=== PATIENT | male | born 1950 | race Caucasian/White ===

== ENCOUNTER 2022-12-04 18:04 | Emergency (ER) | payer OTHER, SELFPAY ==
[2022-12-04 18:08] VITALS: BP 151/95; PULSE 77; RESP 17; TEMP 36.5; O2SAT 96; BMI 27.3
--- NOTE | 2022-12-04 18:09 | ED.EXTPRO1 ---
HPI - Extremity Problem General Chief complaint: Extremity Problem, Nontraumatic Stated complaint: EXTREMITY PAIN, LOWER, BILATERAL Time Seen by Provider: 12/04/22 18:09 History of Present Illness HPI Narrative: Patient presents to emergency department complaining of bilateral lower extremity pain. Patient states pain has been ongoing For 3 weeks. Patient denies any injury. The pain is sharp and it is from the Tibia tuberosity distally bilaterally. The patient has varicosities. He denies any lower extremity edema. He denies any nausea, vomiting, diarrhea, constipation, or abdominal pain. He denies any paresthesias, or weakness. Times he feels like cramping. Patient went to see his primary care doctor and he was prescribed Percocet. He states the kind of took the edge of it but it did not help to relieve the pain completely. And he is out of it. hr ed then prescribed meloxicam which has now to helped at all. Pain is worse with walking.He denies any chest pain, shortness of breath. Related Data Previous Rx's Medication Instructions Recorded oxycodone-acetaminophen 5 mg-325 1 tab PO DAILY PRN pain 5 days #14 12/04/22 mg tablet (Percocet) tabs Allergies Allergy/AdvReac Type Severity Reaction Status Date / Time No Known Drug Allergies Allergy Verified 12/04/22 18:08 Review of Systems ROS Status of ROS 10 or more systems reviewed and unremarkable except as noted in history and below Exam Narrative Exam Narrative: Nurses notes and vital signs reviewed and patient is not hypoxic. General: Nontoxic, Well-appearing and in no apparent distress. Skin: Warm, dry, no pallor noted. No Rash Head: Normocephalic, atraumatic. Neck: Supple, non-tender. Eye: Pupils are equal, round and EOMI. No scleral icterus. Ears, Nose, Mouth, and Throat: TM clear, no posterior oropharynx erythema or nasal mucosal hypertrophy, uvula is mid-line Oral mucosa is moist Cardiovascular: Regular Rate and Rhythm without murmur, gallop or rub. Respiratory: No accessory muscle use or respiratory distress. Lungs are clear to auscultation, no wheezing, rales or rhonchi Chest Wall: no tenderness Back: No midline thoracic or lumbar vertebral tenderness. No CVA tenderness Musculoskeletal: Bilateral lower extremity varicosities noted. There is no erythema, no palpable cords or proximal streaking noted. DP +2 bilaterally. TP +2 bilaterally. Capillary refill is brisk. normal ROM, no calf or popliteal tenderness, no lower extremity edema/swelling, no calf asymmetry GI: Abdomen is soft, non-distended. Normal bowel sounds. No masses appreciated. No tenderness to palpation. No rebound, guarding, or rigidity noted. Neurological: A&O x4. No cranial nerve dysfunction observed. No truncal ataxia. Moves all extremities. Sensation intact. Psychiatric: Cooperative and interactive. Normal mood and affect. Constitutional Vital Signs, click to edit/add: Last Vital Signs Temp 97.7 F 12/04/22 18:08 Pulse 77 12/04/22 18:08 Resp 17 12/04/22 18:08 BP 151/95 H 12/04/22 18:08 Pulse Ox 96 12/04/22 18:08 O2 Del Method Room Air 12/04/22 18:45 Course Vital Signs Vital signs: Vital Signs Temperature 97.7 F 12/04/22 18:08 Pulse Rate 77 12/04/22 18:08 Respiratory Rate 17 12/04/22 18:08 Blood Pressure 151/95 H 12/04/22 18:08 Pulse Oximetry 96 12/04/22 18:08 Oxygen Delivery Method Room Air 12/04/22 18:08 Temperature 97.7 F 12/04/22 18:08 Pulse Rate 77 12/04/22 18:08 Respiratory Rate 17 12/04/22 18:08 Blood Pressure 151/95 H 12/04/22 18:08 Pulse Oximetry 96 12/04/22 18:08 Oxygen Delivery Method Room Air 12/04/22 18:45 MDM - Extremity (Nontraumatic) MDM Narrative Medical decision making narrative: Ultrasound of bilateral lower extremities was done and no deep vein thrombosis or superficial thrombosis was noted.Lab studies showed dehydration , and Hypocalcemia. Patient was advised to take calcium and increase fluid intake. Patient is advised to continue to take Percocet given a prescription. Worse was checked. He will follow up with primary care doctor. At this time the patient is without objective evidence of an acute process requiring hospitalization or inpatient management. The patient has remained hemodynamically stable. No additional indication for emergent studies at this time. I answered all questions. Discussed discharge instructions including standard anticipatory guidance and what should prompt a return to the emergency department, including if they get worse are not getting better or develops any new or concerning symptoms. I've given them specific time frame in which to follow-up, and who to follow-up with. The patient demonstrates understanding. Patient is nontoxic and stable for discharge with outpatient follow-up. This note was created with the assistance of a speech recognition program. Although the intention is to generate documents that actually reflects the content of the visit, no guarantees can be provided that every mistake has been identified and corrected by editing. Lab Data Attestation: I reviewed the patient's lab results. Labs: Lab Results 12/04/22 Range/Units 18:39 WBC 6.2 (4.0-11.0) 10^3/uL RBC 4.00 L (4.70-6.10) 10^6/uL Hgb 13.1 L (14.0-18.0) g/dL Hct 40.0 L (42.0-54.0) % MCV 100.0 H (80.0-94.0) fL MCH 32.8 (25.9-34.0) pg MCHC 32.8 (29.9-35.2) g/dL RDW 14.6 (11.0-15.0) % Plt Count 190 (150-450) 10^3/uL MPV 9.5 (9.5-13.5) fL Neut % (Auto) 56.3 (43.0-75.0) % Lymph % (Auto) 27.8 (20.5-60.0) % [place] % (Auto) 12.5 H (1.7-12.0) % Eos % (Auto) 2.9 (0.9-7.0) % Baso % (Auto) 0.2 (0.2-2.0) % Neut # (Auto) 3.5 (1.4-6.5) 10^3/uL Lymph # (Auto) 1.7 (1.2-3.8) 10^3/uL [place] # (Auto) 0.8 (0.3-0.8) 10^3/uL Eos # (Auto) 0.2 (0.0-0.7) 10^3/uL Baso # (Auto) 0.0 (0.0-0.1) 10^3/uL Abs Immat Gran (auto) 0.02 (0.00-0.03) 10^3/uL Imm/Tot Granulo (auto) 0.3 (0.0-0.5) % Sodium 138 (136-145) mmol/L Potassium 4.6 (3.5-5.1) mmol/L Chloride 105 (98-107) mmol/L Carbon Dioxide 30.7 (21.0-32.0) mmol/L Anion Gap 6.9 BUN 26.0 H (7.0-18.0) mg/dL Creatinine 1.04 (0.70-1.30) mg/dL Est GFR ( Amer) >60 (>=60) Est GFR (Non-Af Amer) >60 (>=60) BUN/Creatinine Ratio 25.0 Glucose 87 (74-106) mg/dL Calcium 8.0 L (8.5-10.1) mg/dL Discharge Plan Discharge Chief Complaint: Extremity Problem, Nontraumatic Clinical Impression: Varicose veins of bilateral lower extremities with pain, Lower extremity pain, bilateral, Hypocalcemia Patient Disposition: Home, Self-Care Time of Disposition Decision: 19:39 Condition: Good Mode of Transportation: Private Vehicle Prescriptions / Home Meds: New oxycodone-acetaminophen [Percocet] 5-325 mg tablet 1 tab PO DAILY PRN (Reason: pain) 5 Days Qty: 14 0RF Instructions: Hypocalcemia (ED), Leg Pain (ED) Stand Alone Forms: Portal Instructions Referrals: Physician,Non-Staff, MD [Primary Care Provider] - 1 week Discharge Date/Time: 12/04/22 19:47
--- NOTE | 2022-12-04 18:14 | US_ITS ---
[place] [id number] Patient Name: GARRETT MARIA MRN: [id number] date: 1950 Sex: M Assigned Patient Location: ER Current Patient Location: ER Accession/Order Number: [id number] Exam Date: 12/04/2022 18:15 Report Date: 12/04/2022 19:09 At the request of: PHYLLIS ANDERSON Procedure: US venous doppler LE BI EXAM: US venous doppler LE BI HISTORY: pain, swelling COMPARISON: None. TECHNIQUE: Bilateral lower extremity ultrasound performed using Doppler interrogation FINDINGS: No findings of bilateral lower extremity DVT. Normal augmentation and waveforms US/US venous doppler LE BI IMPRESSION: No evidence of bilateral lower extremity DVT Electronically authenticated by: BRANDI BARROW Date: 12/04/2022 19:09
[2022-12-04 18:46] LABS: Basophils Percent Auto 0.2 % (0.2-2.0); Eosinophils Absolute Auto 0.2 10^3/uL (0.0-0.7); Eosinophils Percent Auto 2.9 % (0.9-7.0); Hemoglobin 13.1 g/dL (14.0-18.0); Immature Granulocytes Abs Auto 0.02 10^3/uL (0.00-0.03); Immature Granulocytes Pct Auto 0.3 % (0.0-0.5); Lymphocytes Absolute Auto 1.7 10^3/uL (1.2-3.8); Lymphocytes Percent Auto 27.8 % (20.5-60.0); Mean Corpuscular HGB Conc 32.8 g/dL (29.9-35.2); Mean Corpuscular Hemoglobin 32.8 pg (25.9-34.0); Mean Platelet Volume 9.5 fL (9.5-13.5); Monocytes Absolute Auto 0.8 10^3/uL (0.3-0.8); Monocytes Percent Auto 12.5 % (1.7-12.0); Neutrophils Absolute Auto 3.5 10^3/uL (1.4-6.5); Neutrophils Percent Auto 56.3 % (43.0-75.0); Platelet Count 190 10^3/uL (150-450); Red Cell Distribution Width 14.6 % (11.0-15.0); White Blood Count 6.2 10^3/uL (4.0-11.0)
[2022-12-04 19:02] LABS: Anion Gap 6.9; Carbon Dioxide 30.7 mmol/L (21.0-32.0); Chloride 105 mmol/L (98-107); Estimated GFR (African America >60 (>=60); Estimated GFR (Non-African Ame >60 (>=60); Glucose 87 mg/dL (74-106); Potassium 4.6 mmol/L (3.5-5.1); Sodium 138 mmol/L (136-145)
== END 2022-12-04 19:47 | disposition home or self-care (01) ==
PROVIDERS: Emergency Provider Emergency Medicine; Family Provider Family Medicine
DX: I83.813 Varicose veins of bilateral lower extremities with pain (principal); E83.51 Hypocalcemia
CPT/HCPCS: 36415; 80048; 85025; 93970; 99284